=== PATIENT | male | born 1950 | race Caucasian/White ===

== ENCOUNTER 2022-02-14 12:03 | Emergency (ER) | payer BC ==
[~2022-02-14] VITALS: Ht 157.5 cm; Wt 57.2 kg
[2022-02-14 12:20] VITALS: BP 111/68
--- NOTE | 2022-02-14 12:26 | NUR ---
FLU BRIANNE AND RSV SWABS COLLECTED
[2022-02-14 13:56] LABS: RSV Negative (NEGATIVE)
[2022-02-14] MEDS ORDERED: DEXAMETHASONE 10 MG/ML VIAL IM ONE (15:45)
[2022-02-14] MEDS ORDERED: ALBU0.0912 IH (16:06)
[2022-02-14] MEDS ORDERED: PROM118S5 PO (16:06)
[2022-02-14] MEDS ORDERED: TAM75 PO (16:06)
[2022-02-14 16:38] VITALS: BP 133/80
--- NOTE | 2022-02-14 16:38 | NUR ---
Patient discharged with v/s stable. Written and verbal after care instructions given and explained. Patient alert, oriented and verbalized understanding of instructions. Ambulatory with steady gait. All questions addressed prior to discharge. ID band removed. Patient advised to follow up with PMD. Rx of TAMIFLU, ALBUTEROL given. Patient educated on indication of medication including possible reaction and side effects. Opportunity to ask questions provided and answered.
== END 2022-02-14 16:38 | disposition home or self-care (01) ==
LOC: MED 12:03
DX: J20.9 Acute bronchitis, unspecified (principal); Z20.822 Contact with and (suspected) exposure to COVID-19
CPT/HCPCS: 71045; 87420; 87426; 87804; 96372; 99284; J1100